=== PATIENT | female | born 1955 | race Caucasian/White ===

== ENCOUNTER 2017-03-21 18:03 | Inpatient (IN) | payer OTHER ==
[~2017-03-21 18:03] MED LIST: ACIDOPHILUS1 EAC5 PO; ALPRAZOLAM0.5 M3 PO; CIPRO500 M2 PO; CRANBERRY500 M2 PO; HYDROCODON-ACE1 EA16 PO; MULTIVITAMINS1 EAC6 PO; REMERON30 M1 PO; VITAMIN C500 M3 PO; XALATAN2.5 M1 EACH EYE
[2017-03-21] MEDS ORDERED: MIRTAZAPINE30 M2 PO (18:40)
[2017-03-21] MEDS ORDERED: ROPINIROLE HC0.25 M1 PO (18:40)
[2017-03-21] MEDS ORDERED: BETAGAN5 M1 EACH EYE (18:41)
[2017-03-21 20:54] LABS: BASO % 0.2 % (0-2); EOS % 5.3 % (0-7); EOSINOPHIL ABSOLUTE COUNT 0.5 tho/cmm (0.0-0.7); HCT-HEMATOCRIT 37.1 % (34.0-49.0); HGB-HEMOGLOBIN 12.6 gm/dl (12.0-15.5); IMMATURE GRANULOCYTES ABSOLUTE 0.01 tho/cmm (0-0.03); IMMATURE GRANULOCYTES PERCENT 0.1 % (0-0.3); LYMPH % 24.9 % (20-45); LYMPH ABSOLUTE COUNT 2.1 tho/cmm (0.8-4.5); MCH (MEAN CORPUSCULAR HGB) 28.6 pg (28.0-32.0); MCV (MEAN CELL VOLUME) 84.1 fl (82.0-96.0); MEAN PLATELET VOLUME 11.3 cmc (9.4-12.4); MONO % 9.3 % (0-12); MONOCYTE ABSOLUTE COUNT 0.8 tho/cmm (0.0-1.2); NEUTROPHIL ABSOLUTE COUNT 5.2 tho/cmm (1.6-8.0); NEUTROPHIL-AUTOMATED 5.2 tho/cmm (1.6-8.0); NEUTROPHILS % 60.2 % (40-80); PLATELET COUNT 221 tho/cmm (150-450); RED BLOOD COUNT 4.41 mil/cmm (4.00-5.20); RED CELL DISTRIBUTION WIDTH 12.3 % (12.4-16.4); WHITE BLOOD COUNT 8.6 tho/cmm (4.0-10.0)
[2017-03-21 21:11] LABS: ALB/GLOB RATIO 0.9 (0.8-2.0); ALBUMIN 3.4 g/dl (3.5-5.0); ALKALINE PHOSPHATASE 89 U/L (33-138); ALT/SGPT 42 U/L (12-78); ANION GAP 15 mmol/L (0-20); AST/SGOT 28 U/L (10-40); BILIRUBIN,TOTAL 0.4 mg/dl (0-1.5); BLOOD UREA NITROGEN 69 mg/dl (6-24); CARBON DIOXIDE-VENOUS 30 mmol/L (22-32); CHLORIDE 99 mmol/l (96-110); CREATININE 7.86 mg/dl (0.50-1.10); GLUCOSE 94 mg/dL (70-110); POTASSIUM 4.2 mmol/L (3.7-5.1); SODIUM 140 mmol/L (135-145); eGFR VALUE FOR BLACK 6 mL/Min
[2017-03-21 21:16] LABS: CALCIUM >15.0 mg/dl (8.5-10.5)
[2017-03-21 23:06] LABS: URINE BILIRUBIN NEGATIVE (NEG); URINE BLOOD LARGE (NEG); URINE GLUCOSE (UA) NEGATIVE (NEG); URINE KETONE SMALL (NEG); URINE LEUKOCYTE ESTERASE POSITIVE (NEG); URINE NITRITE NEGATIVE (NEG); URINE PROTEIN MODERATE (NEG); URINE SPECIFIC GRAVITY 1.015 (1.003-1.030)
[2017-03-21 23:09] LABS: URINE APPEARANCE CLOUDY; URINE COLOR YELLOW
[2017-03-21 23:25] LABS: URINE BACTERIA 2+; URINE RBC 0-3 /[HPF] (0-5); URINE WBC 80-100 /[HPF] (0-5)
[2017-03-22] LABS: URINE PRT/CR RATIO 1.7 Ratio (0.0-0.20); URINE TOTAL PROTEIN-RANDOM 85.3 mg/dl (<11.8)
[2017-03-22 02:32] LABS: ANION GAP 14 mmol/L (0-20); BLOOD UREA NITROGEN 62 mg/dl (6-24); CARBON DIOXIDE-VENOUS 27 mmol/L (22-32); CHLORIDE 105 mmol/l (96-110); GLUCOSE 102 mg/dL (70-110); POTASSIUM 3.7 mmol/L (3.7-5.1); SODIUM 142 mmol/L (135-145); eGFR VALUE FOR BLACK 6 mL/Min
[2017-03-22 03:22] LABS: CALCIUM 14.1 mg/dl (8.5-10.5)
[2017-03-22 16:14] LABS: ANION GAP 13 mmol/L (0-20); BLOOD UREA NITROGEN 56 mg/dl (6-24); CALCIUM 12.6 mg/dl (8.5-10.5); CARBON DIOXIDE-VENOUS 26 mmol/L (22-32); CHLORIDE 111 mmol/l (96-110); CREATININE 6.81 mg/dl (0.50-1.10); GLUCOSE 90 mg/dL (70-110); PHOSPHOROUS 3.2 mg/dl (2.5-4.9); POTASSIUM 3.9 mmol/L (3.7-5.1); SODIUM 146 mmol/L (135-145); eGFR VALUE FOR BLACK 7 mL/Min
--- NOTE | 2017-03-22 21:33 | NUR ---
VIRTUAL CARE NOTE: ASSESSMENT DEFFERED. ATTEMPTED TO ROUND SEVERAL TIMES. PT EITHER WITH RN OR SLEEPING. WILL CONTINUE WITH CHART REVIEW.
[2017-03-23 05:58] LABS: ALBUMIN 2.8 g/dl (3.5-5.0); ANION GAP 15 mmol/L (0-20); BLOOD UREA NITROGEN 47 mg/dl (6-24); CALCIUM 11.2 mg/dl (8.5-10.5); CARBON DIOXIDE-VENOUS 22 mmol/L (22-32); CHLORIDE 111 mmol/l (96-110); CREATININE 6.16 mg/dl (0.50-1.10); GLUCOSE 87 mg/dL (70-110); PHOSPHOROUS 3.2 mg/dl (2.5-4.9); POTASSIUM 3.7 mmol/L (3.7-5.1); SODIUM 144 mmol/L (135-145); eGFR VALUE FOR BLACK 8 mL/Min
--- NOTE | 2017-03-23 20:30 | NUR ---
VIRTUAL CARE NOTE: ASSESSMENT DEFERRED.
[2017-03-24 07:15] LABS: BASO % 0.1 % (0-2); EOS % 7.1 % (0-7); EOSINOPHIL ABSOLUTE COUNT 0.5 tho/cmm (0.0-0.7); HGB-HEMOGLOBIN 10.7 gm/dl (12.0-15.5); IMMATURE GRANULOCYTES ABSOLUTE 0.02 tho/cmm (0-0.03); IMMATURE GRANULOCYTES PERCENT 0.3 % (0-0.3); LYMPH % 15.4 % (20-45); LYMPH ABSOLUTE COUNT 1.1 tho/cmm (0.8-4.5); MCH (MEAN CORPUSCULAR HGB) 28.1 pg (28.0-32.0); MCHC MEAN CORPUSCULAR HGB CONC 33.4 % (32.0-36.0); MONO % 8.1 % (0-12); MONOCYTE ABSOLUTE COUNT 0.6 tho/cmm (0.0-1.2); NEUTROPHIL ABSOLUTE COUNT 4.8 tho/cmm (1.6-8.0); NEUTROPHIL-AUTOMATED 4.8 tho/cmm (1.6-8.0); PLATELET COUNT 158 tho/cmm (150-450); RED BLOOD COUNT 3.81 mil/cmm (4.00-5.20); RED CELL DISTRIBUTION WIDTH 12.7 % (12.4-16.4); WHITE BLOOD COUNT 6.9 tho/cmm (4.0-10.0)
[2017-03-24 07:37] LABS: ALBUMIN 2.4 g/dl (3.5-5.0); ANION GAP 15 mmol/L (0-20); BLOOD UREA NITROGEN 38 mg/dl (6-24); CALCIUM 9.9 mg/dl (8.5-10.5); CARBON DIOXIDE-VENOUS 20 mmol/L (22-32); CHLORIDE 115 mmol/l (96-110); GLUCOSE 72 mg/dL (70-110); PHOSPHOROUS 2.7 mg/dl (2.5-4.9); POTASSIUM 3.2 mmol/L (3.7-5.1); SODIUM 147 mmol/L (135-145); eGFR VALUE FOR BLACK 11 mL/Min
--- NOTE | 2017-03-24 21:20 | NUR ---
VIRTUAL CARE NOTE: ASSESSMENT DEFERRED. PT. SLEEPING.
[2017-03-25 06:23] LABS: ANION GAP 13 mmol/L (0-20); BLOOD UREA NITROGEN 28 mg/dl (6-24); CALCIUM 9.6 mg/dl (8.5-10.5); CARBON DIOXIDE-VENOUS 19 mmol/L (22-32); CHLORIDE 114 mmol/l (96-110); CREATININE 3.92 mg/dl (0.50-1.10); GLUCOSE 85 mg/dL (70-110); LIPASE 321 U/L (73-393); POTASSIUM 3.6 mmol/L (3.7-5.1); SODIUM 142 mmol/L (135-145); eGFR VALUE FOR BLACK 14 mL/Min
--- NOTE | 2017-03-25 19:30 | NUR ---
VIRTUAL CARE NOTE: PT. IS IN BED, DENIES PAIN AND STATES SHE FEELS SO MUCH BETTER TODAY. STATES HAS RESTLESS LEGS AT TIMES. ALSO STATES SHE HAS ONLY WALKED ONE TIME IN THE [place] TODAY. ENCOURAGED TO WALK MORE AND IT MAY HELP WITH RESTLESS LEGS AND HELP PREVENT BLOOD CLOTS AND PNEUMONIA. DENIES FURTHER NEEDS OR QUESTIONS AT THIS TIME. INSTRUCTED TO CALL FOR FUTURE NEEDS. STATES VERBAL AGREEMENT.
[2017-03-26 06:21] LABS: ANION GAP 16 mmol/L (0-20); BLOOD UREA NITROGEN 24 mg/dl (6-24); CALCIUM 9.7 mg/dl (8.5-10.5); CARBON DIOXIDE-VENOUS 18 mmol/L (22-32); CHLORIDE 112 mmol/l (96-110); CREATININE 3.52 mg/dl (0.50-1.10); GLUCOSE 96 mg/dL (70-110); POTASSIUM 3.3 mmol/L (3.7-5.1); SODIUM 143 mmol/L (135-145); eGFR VALUE FOR BLACK 15 mL/Min
--- NOTE | 2017-03-26 15:18 | NUR ---
VIRTUAL CARE NOTE: PT RESTING ON BED STATES DOING VERY WELL TODAY, FEELING BETTER. PT FEELS THAT HER RESTLESS LEG GETTING WORSE RECENTLY WHICH SHE HAS HAVE IT FOR 15 YEARS, ENCOURAGED PT TO CLOSELY MONITOR THIS WITH PCP WHEN BETING DISCHARGE FROM THE HOSPTIAL TO ADJUST THE MEDS IF NEEDED. PT STATES SHE CAN GET UP AND MOVE BY [place] AND FEEL SAFE AT HOME. PLAN OF DC POSSIBLE TOMORROW. PT DENIES ANY QUESTIONS OR CONCERNS.
[2017-03-27 06:08] LABS: ALBUMIN 2.4 g/dl (3.5-5.0); BLOOD UREA NITROGEN 25 mg/dl (6-24); CALCIUM 9.2 mg/dl (8.5-10.5); CARBON DIOXIDE-VENOUS 22 mmol/L (22-32); CHLORIDE 112 mmol/l (96-110); CREATININE 3.14 mg/dl (0.50-1.10); GLUCOSE 106 mg/dL (70-110); SODIUM 142 mmol/L (135-145); eGFR VALUE FOR BLACK 18 mL/Min
[2017-03-27 06:19] LABS: ANION GAP 12 mmol/L (0-20)
[2017-03-27 06:20] LABS: POTASSIUM 3.7 mmol/L (3.7-5.1)
[2017-03-27 06:23] LABS: PHOSPHOROUS 0.9 mg/dl (2.5-4.9)
[2017-03-27 17:41] LABS: ALBUMIN 2.5 g/dl (3.5-5.0); ANION GAP 13 mmol/L (0-20); BLOOD UREA NITROGEN 30 mg/dl (6-24); CALCIUM 8.6 mg/dl (8.5-10.5); CARBON DIOXIDE-VENOUS 22 mmol/L (22-32); CHLORIDE 107 mmol/l (96-110); CREATININE 2.98 mg/dl (0.50-1.10); GLUCOSE 108 mg/dL (70-110); PHOSPHOROUS 1.6 mg/dl (2.5-4.9); SODIUM 136 mmol/L (135-145); eGFR VALUE FOR BLACK 19 mL/Min
[2017-03-27 17:47] LABS: POTASSIUM 5.6 mmol/L (3.7-5.1)
--- NOTE | 2017-03-27 19:39 | NUR ---
VIRTUAL CARE NOTE: REVIEWED PLAN OF CARE WITH PT. WILL HOLD DC PER DR. MENCHACA AND CONTINUE TO REPLACE PHOS. WILL RECHECK IN AM WITH HOPES OF DC THEN. PT V/U. DENIES ANY OTHER QUESTIONS OR CONERNS AT THIS TIME, SHE WILL CALL HER FAMILY AND LET THEM KNOW. DENIES OTHER NEEDS. UPDATED STAFF ON PLAN AND ORDERS FAXED. ENCOURGAED PT TO NOTIFY STAFF WITH ANY NEEDS. SHE V/U. WILL CONTINUE WITH CHART REVIEW.
[2017-03-28 06:09] LABS: ANION GAP 15 mmol/L (0-20); BLOOD UREA NITROGEN 26 mg/dl (6-24); CALCIUM 8.4 mg/dl (8.5-10.5); CARBON DIOXIDE-VENOUS 22 mmol/L (22-32); CHLORIDE 111 mmol/l (96-110); CREATININE 2.71 mg/dl (0.50-1.10); GLUCOSE 105 mg/dL (70-110); PHOSPHOROUS 3.4 mg/dl (2.5-4.9); SODIUM 144 mmol/L (135-145); eGFR VALUE FOR BLACK 21 mL/Min
[2017-03-28 06:20] LABS: POTASSIUM 3.8 mmol/L (3.7-5.1)
[2017-03-28] MEDS ORDERED: [UNRECOGNIZED DRUG - OTHER] PO (09:41)
[2017-03-28] MEDS ORDERED: OMEPRAZOLE40 M2 PO (11:34)
== END 2017-03-28 12:25 | DRG 641 ==
LOC: 5WD 18:03
PROVIDERS: Internal Medicine; Internal Medicine Nephrology; ADMIT Hospitalist
DX: E83.52 Hypercalcemia (principal); N17.9 Acute kidney failure, unspecified; N18.3 Chronic kidney disease, stage 3 (moderate); E83.39 Other disorders of phosphorus metabolism; F41.0 Panic disorder [episodic paroxysmal anxiety]; G25.81 Restless legs syndrome; K21.9 Gastro-esophageal reflux disease without esophagitis; K42.9 Umbilical hernia without obstruction or gangrene; N21.0 Calculus in bladder; K76.9 Liver disease, unspecified; Z87.442 Personal history of urinary calculi; K59.00 Constipation, unspecified
CPT/HCPCS: G0204; J0630; J0780; J2405; J3489; J7030; J7050